=== PATIENT | female | born 1975 | race Caucasian/White ===

== ENCOUNTER 2019-08-20 08:13 | Day surgery (SDC) | payer OTHER ==
[2019-08-20 09:33] VITALS: TEMP 98; BMI 39.0
[2019-08-20 12:36] VITALS: BP 107/87; PULSE 84
--- NOTE | 2019-08-23 16:40 | PATH ---
Surgical Pathology Report Patient Name: MARISOL CHRISTIANSON [facility]. Rec. #: [id number] /Age/Gender: 1975 (Age: 43) / F Account: [id number] Location: U-ENDOSCOPY Taken: 08/20/2019 Received: 08/20/2019 Reported: 08/23/2019 Physicians: Lonnie Rhodes M.D. Specimen(s) Received A: DUODENUM B: STOMACH C: ESOPHAGUS D: DESCXENDING COLON POLYP Clinical History Abdominal pain Postoperative diagnosis: Gastritis, gastric polyp, descending colon polyps, hemorrhoids, diverticulosis Final Diagnosis A. DUODENUM, BIOPSY: DUODENAL MUCOSA WITH FOCAL NONSPECIFIC CHRONIC DUODENITIS. NO HISTOLOGIC EVIDENCE OF INTRAEPITHELIAL LYMPHOCYTOSIS. B. STOMACH, BIOPSY: GASTRIC MUCOSA WITH MILD CHRONIC GASTRITIS. IMMUNOSTAIN FOR H. PYLORI IS NEGATIVE. NEGATIVE FOR INTESTINAL METAPLASIA. C. ESOPHAGUS, BIOPSY: GLANDULAR EPITHELIUM WITH INTESTINAL METAPLASIA. SEE COMMENT. NEGATIVE FOR DYSPLASIA. Comment: No squamous epithelium present. Findings may represent Green's esophagus in the proper clinical settings. Suggest clinical correlation. D. DESCENDING COLON POLYP, POLYPECTOMY: TUBULAR ADENOMA. Electronically Signed Maria C Lentz M.D. Gross Description A. Received in formalin, labeled "biopsy duodenum" are 2 putnam, irregular portions of soft tissue measuring 0.1 and 0.4 cm. in greatest dimension. The specimens are submitted in toto in one cassette. B. Received in formalin, labeled "biopsy stomach" are 3 putnam, irregular portions of soft tissue ranging from 0.1-0.4 cm. in greatest dimension. The specimens are submitted in toto in one cassette. C. Received in formalin, labeled "biopsy esophagus" are 2 putnam, irregular portions of soft tissue measuring 0.2 and 0.3 cm. in greatest dimension. The specimens are submitted in toto in one cassette. D. Received in formalin, labeled "descending colon polyp" is a putnam, polypoid portion of soft tissue measuring 0.6 cm. in greatest dimension. The specimen is submitted in toto in one cassette. 08/20/2019 saudi08/20/2019
== END 2019-08-20 11:32 | disposition home or self-care (01) ==
LOC: JASU-ENDO 08:13
PROVIDERS: ATTEND Internal Medicine Gastroenterology
PROC: 0DBM8ZX Excision of Descending Colon, Via Natural or Artificial Opening Endoscopic, Diagnostic (ICD-10-PCS; principal; 2019-08-20 09:00)
DX: K57.30 Diverticulosis of large intestine without perforation or abscess without bleeding (principal); K64.8 Other hemorrhoids; D12.4 Benign neoplasm of descending colon
CPT/HCPCS: 81025; 88305-TC; 88342-TC